=== PATIENT | female | born 2000 | race Caucasian/White ===

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

== ENCOUNTER 2020-01-02 06:04 | Observation (INO) | payer OTHER ==
[2020-01-02 06:48] LABS: #Monocytes 0.4 thou/uL (0.11-0.59); #Neutrophils 10.8 thou/uL (1.40-6.50); %Basophils 0.1 % (0.0-1.0); %Eosinophils 0.1 % (0.0-10.0); %Lymphocytes 8.1 % (28.0-48.0); %Neutrophils 88.7 % (31.0-61.0); Hemoglobin 8.4 g/dL (12.0-16.0); Mean Corpuscular Hemoglobin 28.9 pg (25.0-35.0); Mean Corpuscular Volume 87.7 fL (78.0-98.0); Mean Platelet Volume 7.3 fL (7.4-10.4); Platelet Count 226 thou/uL (130-400); RBC Distribution Width 12.6 % (11.5-14.5); White Blood Cell (WBC) Count 12.2 thou/uL (4.8-10.8)
[2020-01-02] MEDS ORDERED: Misoprostol 200 MCG TAB PR SCH (07:15)
--- NOTE | 2020-01-02 07:45 | RAD ---
RADIOGRAPH CHEST 1 VIEW: DATE: 01/02/2020 HISTORY: 19-year-old female with anemia presents with syncope. Rule out aspiration. FINDINGS: The visualized lung blanco are clear. The cardiomediastinal silhouette and hilar shadows are normal. The lateral costophrenic angles are sharp. The osseous structures appear normal. There is no pneumothorax. IMPRESSION: Negative.
--- NOTE | 2020-01-02 08:10 | PDOC.BPN ---
- Brief Progress Note OBGYN president financial institution case reviewed with Dr Ayala. Awaiting peds arrival for 1 unit PRBC then possible home after. POCs have passed per prior eval and Dr Prasad extraction in ED
--- NOTE | 2020-01-02 08:39 | ULT ---
PELVIC ULTRASOUND: HISTORY: Vaginal bleeding of dark red blood. Positive test. TECHNIQUE: Multiplanar, jennings scale, and color Doppler images were obtained in a transabdominal pelvic ultrasound . Spectral analysis of the Doppler waveforms of the right ovary were performed. FINDINGS: In the lower uterine segment is a complex area which is heterogeneous in appearance measuring 7.0 cm in size. No obvious pole or yolk sac is seen in this location and no obvious normal-appearing gestational sac is seen in this location. No gestational sac or fetus is seen higher in the uterus. No free fluid is seen in the pelvis. The left ovary is not visualized. The right ovary is normal in size and appearance and demonstrates normal internal flow. IMPRESSION: Complex region in the lower uterine segment likely represents an ongoing spontaneous . This likely represents blood products. This could also represent retained products of conception. POS: EAA
--- NOTE | 2020-01-02 08:41 | HP ---
HISTORY OF PRESENT ILLNESS: The patient is a 19-year-old G2, P1 female, presenting to the emergency room with 1-day history of progressive heavy vaginal bleeding that began yesterday morning, the bleeding continued and increased clots passed and the patient believes that at some point she has saw her baby mixed in with the blood clots and came to the emergency room for evaluation as she is continuing to have heavy bleeding. On initial evaluation in [place], the patient was noted to have copious amount of bleeding, borderline blood pressures, hemoglobin of 9.4, hematocrit of 29.8 and platelets of 263,000, and was transferred to the [facility] for further evaluation. En route, she received 3 L of crystalloid. Here in the emergency room, she continued to have heavy bleeding and became very symptomatic with blood pressures dropping into the mid 80s with sitting up, dizzy and lightheaded. Ultrasound was performed and it appeared that there were products of conception in the lower uterine segment. OB/GYB was consulted for further evaluation. Upon presentation, the patient reports that the worst part of her bleeding seems to have gotten better and her cramping has improved. She does still report being very dizzy and lightheaded when she tries to sit up. Otherwise, she denies fever, headache, chest pain, shortness of breath, nausea, vomiting, diarrhea, constipation, hip problems, knee problems, muscle weakness. PAST MEDICAL HISTORY: The patient reports some baseline anemia, but was unable to describe the nature of her anemia or the degree of anemia. PAST SURGICAL HISTORY: She had a knee surgery. OB HISTORY: She has had one term delivery about 11 months ago with this being a surprise. The patient does report she is on control pills, but does admit to not taking to skipping days at times. SOCIAL HISTORY: Denies drug, alcohol or tobacco use. MEDICATIONS: The patient has received TXA prior to my evaluation and crystalloid fluids. PHYSICAL EXAMINATION: GENERAL: The patient is supine. She looks to be in no acute distress. She is otherwise alert, oriented, cooperative, and pleasant to interact with. She does have decent capillary refills and decent color in her conjunctivae. LUNGS: Clear to auscultation bilaterally. HEART: Regular rate and rhythm. ABDOMEN: Soft. EXTREMITIES: She has multiple excoriations on her lower extremities and bites of some kind. : Her vulva is without masses, lesions or erythema. She does have blood staining over her perineum and her bottom area, but no active bleeding visible from the introitus. On speculum exam, the patient is noted to have copious amount of dark blood clotted in the vaginal vault, a total of approximately about 100 mL. Also, visible are products of conception at the os including the membranes and placental fragments. These were teased out gently and carefully with a ring forceps. Once all this was removed, there was no more active bleeding visible and the procedure was completed. ASSESSMENT AND PLAN: The patient is a 19-year-old female with completed spontaneous at approximately 12 to 13 weeks gestation with symptomatic acute blood loss anemia. Her most recent lab shows a drop to 8.4 over 2 hours, hematocrit 25.4, and platelets of 222,000, I anticipate this to be a point or two lower in actuality given the amount of bleeding that was described by the patient and by the outside facility. Given her symptoms, decision was made to transfuse 1 unit of packed red blood cells and then we will reassess. The patient will be admitted to observation for this and Dr. Brice is the oncoming [facility] [facility] hospitalist provider who will be managing disposition of the patient. Job ID: [id number]
[2020-01-02 09:42] VITALS: BP 97/50
[2020-01-02 09:46] VITALS: BMI 33.0
[2020-01-02 12:40] VITALS: TEMP 98.6
[2020-01-02 17:42] LABS: SARS-CoV-2 MS2 Positive; SARS-CoV-2 N Gene Negative; SARS-CoV-2 S Gene Negative; SARS-CoV-2 by NAA Not Detected (NotDetected); SARS-CoV-2 orf1ab Negative
--- NOTE | 2020-01-03 06:38 | DIS ---
DATE OF ADMISSION: 01/02/2020 DATE OF DISCHARGE: 01/02/2020 PRINCIPAL DIAGNOSES: 1. Complete spontaneous . 2. Blood transfusion during current hospitalization. 3. Rh negative status. HOSPITAL COURSE: In brief, this patient was first evaluated by Dr. Elfego Ayala, who was highway traffic control technician on January 02, 2020. The evaluation by his report in the emergency department was that the patient was having spontaneous passage of tissue per vagina. He does state that she had partial passage of tissue/material prior to arrival, and he did extract from the vaginal area tissue that was compatible with the placenta approximately in the first trimester down in the ER. By his assessment, she did not require any surgical management (D and C) as the bleeding had stopped. She was treated medically with Cytotec. The initial hematocrit value in the ED was 25, and as Dr. Ayala felt that this was not truly reflective of her equilibrium due to vaginal bleeding prior to the placental extrusion, he ordered 1 unit packed red blood cells. We evaluated the patient at bedside on January 02, 2020, at approximately 10:00, the 1 unit was being transfused. The patient is Rh negative and will receive RhoGAM prior to discharge. Care was reviewed with the patient. The tissue was sent to pathology from the ED. She will follow up with her [employer] provider or any family medicine provider in 2 weeks to continue this care. Once again, she did not require D and C as there was no evidence of active or uncontrolled bleeding. I did evaluate the patient's vital signs prior to discharge, and I have reviewed her vital log at 10:30 a.m. She was afebrile with pulse in the 70s with normal O2 saturation. Blood pressures were in the 110s over 50s, in general. Job ID: [id number]
--- NOTE | 2020-01-11 11:51 | EKG ---
Test Reason : EMERGENCY Blood Pressure : / mmHG Vent. Rate : 069 BPM Atrial Rate : 069 BPM P-R Int : 142 ms QRS Dur : 078 ms QT Int : 426 ms P-R-T Axes : 028 045 014 degrees QTc Int : 456 ms Normal sinus rhythm Normal ECG Confirmed by ELENO FERRARA ([id number]), business editor KAVON CHEN ([id number]) on 01/11/2020 11:51:03 AM Referred By: Confirmed By:ELENO FERRARA
== END 2020-01-02 12:53 | disposition home or self-care (01) ==
LOC: ERS 06:04 → 3SE 08:47
PROVIDERS: ADMIT Obstetrics & Gynecology; ATTEND Obstetrics & Gynecology
DX: O03.6 Delayed or excessive hemorrhage following complete or unspecified spontaneous abortion (principal); D62 Acute posthemorrhagic anemia; Z20.828 Contact with and (suspected) exposure to other viral communicable diseases
CPT/HCPCS: 36430; 71045; 76856; 86850; 86900; 86901; 87635; 88305; 90384; 93005; 93976; 96372; G0378; P9016; U0003